=== PATIENT | male | born 1990 ===

== ENCOUNTER 2017-03-26 22:29 | Emergency (ER) | payer SELFPAY ==
[2017-03-26 22:32] VITALS: BP 138/46; PULSE 107; RESP 16; TEMP 98.4; O2SAT 96
--- NOTE | 2017-03-26 23:01 | ED PDOC ---
HPI: Psych/Substance Abuse Time Seen by Provider: 03/26/17 22:38 Chief Complaint (Nursing): Alcohol Ingestion Chief Complaint (Provider): ETOH intoxication History Per: Patient Additional Complaint(s): To ED via BLS and accompanied by police for evaluation of alcohol intoxication. Pt awake and alert. Cooperative and calm Past Medical History Reviewed: Nursing Documentation, Vital Signs Vital Signs: Last Vital Signs Temp 98.4 F 03/26/17 22:31 Pulse 107 H 03/26/17 22:31 Resp 16 03/26/17 22:31 BP 138/46 L 03/26/17 22:31 Pulse Ox 96 03/26/17 22:31 - Medical History PMH: No Chronic Diseases - Surgical History Surgical History: No Surg Hx - Family History Family History: States: No Known Family Hx - Living Arrangements Living Arrangements: With Family - Social History Current smoker - smoking cessation education provided: No Alcohol: Social - Allergies Allergies/Adverse Reactions: Allergies Allergy/AdvReac Type Severity Reaction Status Date / Time No Known Allergies Allergy Verified 03/26/17 22:30 Review of Systems ROS Statement: Except As Marked, All Systems Reviewed And Found Negative Physical Exam - Reviewed Nursing Documentation Reviewed: Yes Vital Signs Reviewed: Yes - Physical Exam Appears: Positive for: Well, Non-toxic, No Acute Distress Head Exam: Positive for: ATRAUMATIC, NORMAL INSPECTION, NORMOCEPHALIC Skin: Positive for: Normal Color, Warm, DRY Eye Exam: Positive for: EOMI, Normal appearance, PERRL ENT: Positive for: Normal ENT Inspection Neck: Positive for: Normal, Painless ROM Cardiovascular/Chest: Positive for: Regular Rate, Rhythm Respiratory: Positive for: CNT, Normal Breath Sounds Gastrointestinal/Abdominal: Positive for: Normal Exam, Bowel Sounds, Soft Back: Positive for: Normal Inspection Extremity: Positive for: Normal ROM Neurologic/Psych: Positive for: Alert, Oriented - Laboratory Results Result Diagrams: 03/26/17 23:20 03/26/17 23:20 - ECG O2 Sat by Pulse Oximetry: 96 Medical Decision Making Medical Decision Making: ETOH 196 Pt in bed resting while in ED Significant other presented to ED at 0200. Pt stable for discharge at this time Disposition - Clinical Impression Clinical Impression: Alcohol ingestion - Patient ED Disposition Is Patient to be Admitted: No - Disposition Disposition: Routine/Home Disposition Time: 02:11 Condition: GOOD Instructions: Alcohol Intoxication (ED) Forms: [facility] (Citizen [place])
[2017-03-26 23:23] LABS: BASO % 0.7 % (0.0-2.0); EOS # 0.8 K/uL (0.0-0.7); HEMOGLOBIN 15.9 g/dL (12.0-18.0); LYMPH # 1.7 K/uL (1.0-4.3); LYMPH % 24.7 % (20.0-40.0); MEAN CELL VOLUME 87.6 fl (80.0-94.0); MEAN CORPUSCULAR HGB CONC 34.2 g/dL (33.0-37.0); MONO # 0.4 K/uL (0.0-0.8); MONO % 5.6 % (0.0-10.0); NRBC % 0.1 % (0.0-0.0); RBC 5.3 Mil/uL (4.40-5.90); RED CELL DISTRIBUTION WIDTH 13.4 % (11.5-14.5)
[2017-03-26 23:32] LABS: ALB/GLOB RATIO 1.5 (1.0-2.1); ALBUMIN 4.7 g/dL (3.5-5.0); ALT/SGPT 80 U/L (21-72); AST/SGOT 44 U/L (17-59); BLOOD UREA NITROGEN 14 mg/dl (9-20); CALCIUM 9.8 mg/dL (8.4-10.2); GFR AFRICAN-AMERICAN > 60; GFR NON-AFRICAN AMERICAN > 60
[2017-03-26 23:53] LABS: BARBITURATES, UR NEGATIVE (NEGATIVE); BENZODIAZEPINES, UR NEGATIVE (NEGATIVE); OPIATES, UR NEGATIVE (NEGATIVE); PHENCYCLIDINE, UR NEGATIVE (NEGATIVE)
== END 2017-03-27 02:10 | disposition home or self-care (01) ==
LOC: H.ER 22:29
DX: F10.129 Alcohol abuse with intoxication, unspecified (principal)
CPT/HCPCS: 80053; 85025; 99281; G0480